=== PATIENT | male | born 1960 | race American Indian/Alaskan Native ===

== ENCOUNTER 2017-01-22 | Emergency (ER) | payer OTHER ==
--- NOTE | 2017-01-22 01:39 | XRay Report ---
FINAL REPORT EXAM: XR SPINE LUMBOSACRAL 2-3V HISTORY: BACK PAIN TECHNIQUE: Three views lumbar spine were obtained. FINDINGS: There is moderate narrowing of the L2-L3 disc with endplate spurring. The remaining disc heights appear normal. The alignment is normal. The SI joints appear normal. The soft tissues reveal calcification of the abdominal aorta. IMPRESSION: Moderate narrowing of the L2-3 disc with spurring. No acute injury.
[2017-01-22] MEDS ORDERED: MOTRIN ONE (02:53)
[2017-01-22] MEDS ORDERED: MOTRIN PO ONE (02:54)
[2017-01-22] MEDS ORDERED: MORPHINE IM ONE (08:00)
--- NOTE | 2017-01-22 08:08 | Emergency Department Report ---
ED Back Pain/Injury HPI - General Chief Complaint: Back Pain/Injury Stated Complaint: LEG,BACK PAIN Time Seen by Provider: 01/22/17 07:36 Source: patient Limitations: No Limitations - History of Present Illness Initial Comments: 56-year-old male presents with complaints of pain in his low back since 1 week ago. Pain radiates down his his left thigh. Patient recalls bending down to some work a week ago prior to onset of pain. No fecal or urinary incontinence. Pt was problems with his gait as a result of his pain Pt was seen by his PCP and commenced on Flexeril and Diclofenac. Pt claims he is not getting any relief o fhis symptoms Complaint: back pain -: Gradual, week(s) (1) Similar Symptoms Previously: Yes (chronic low back pain) Place: home Radiation: left leg (left thigh goes into spasms) Severity: moderate Severity scale (0 -10): 5 Quality: sharp, aching Consistency: intermittent Improves With: immobilization Worsens With: movement, walking Context: bending (doing some work) Associated Symptoms: weakness (left leg), difficulty walking. denies: cough, difficulty urinating, diaphoresis, incontinence, fever/chills, constipation, headaches, abdominal pain, malaise, nausea/vomiting, rash, seizure, shortness of breath - Related Data Home Medications Medication Instructions Recorded Confirmed Last Taken Diclofenac Sodium ER 75 mg PO Q12H 01/22/17 01/22/17 Unknown Flexeril 10 MG TAB 1 tab PO HS PRN 01/22/17 01/22/17 Unknown Previous Rx's Medication Instructions Recorded Last Taken Type Methocarbamol [Robaxin TAB] 1,500 mg PO TID #30 tablet 01/22/17 Unknown Rx traMADol [Ultram] 50 mg PO Q6HR PRN #20 tablet 01/22/17 Unknown Rx Allergies Allergy/AdvReac Type Severity Reaction Status Date / Time No Known Allergies Allergy Verified 01/22/17 02:53 ED Review of Systems ROS: Stated complaint: LEG,BACK PAIN Other details as noted in HPI Comment: All other systems reviewed and negative Constitutional: denies: see HPI, diaphoresis, fever, malaise Eyes: denies: eye pain, eye discharge, vision change ENT: denies: throat pain, dental pain, hearing loss, epistaxis Respiratory: denies: cough, orthopnea, shortness of breath, SOB with exertion, SOB at rest Cardiovascular: denies: chest pain, palpitations, dyspnea on exertion, edema, syncope, paroxysmal nocturnal dyspnea Endocrine: no symptoms reported Gastrointestinal: denies: nausea, diarrhea, constipation, hematemesis Genitourinary: denies: urgency, dysuria, frequency, hematuria Musculoskeletal: as per HPI, back pain, other (radiated pain down his left leg with spasms of his left thigh) Skin: denies: change in color, change in hair/nails, pruritus Neurological: numbness (in his left leg), abnormal gait (due to pain in left leg ). denies: headache, weakness Psychiatric: denies: anxiety, depression, auditory hallucinations, visual hallucinations, homicidal thoughts ED Past Medical Hx - Past Medical History Previous Medical History?: No - Surgical History Past Surgical History?: No - Social History Smoking Status: Current Some Day Smoker Substance Use Type: None - Medications Home Medications: Home Medications Medication Instructions Recorded Confirmed Last Taken Type Diclofenac Sodium ER 75 mg PO Q12H 01/22/17 01/22/17 Unknown History Flexeril 10 MG TAB 1 tab PO HS PRN 01/22/17 01/22/17 Unknown History Methocarbamol [Robaxin TAB] 1,500 mg PO TID #30 tablet 01/22/17 Unknown Rx traMADol [Ultram] 50 mg PO Q6HR PRN #20 tablet 01/22/17 Unknown Rx ED Physical Exam - General Limitations: No Limitations General appearance: alert, in distress (mild to moderate distress) - Head Head exam: Present: atraumatic, normocephalic, normal inspection - Eye Eye exam: Present: normal appearance, PERRL, EOMI. Absent: scleral icterus, conjunctival injection, nystagmus, periorbital swelling Pupils: Present: normal accommodation - ENT ENT exam: Present: normal exam, normal orophraynx, mucous membranes moist - Neck Neck exam: Present: normal inspection, full ROM. Absent: tenderness - Respiratory Respiratory exam: Present: normal lung sounds bilaterally. Absent: respiratory distress, wheezes, rales, chest wall tenderness - Cardiovascular Cardiovascular Exam: Present: regular rate, normal rhythm, normal heart sounds - GI/Abdominal GI/Abdominal exam: Present: soft, normal bowel sounds. Absent: distended, tenderness, guarding, hyperactive bowel sounds, hypoactive bowel sounds, organomegaly, mass - Rectal Rectal exam: Present: deferred - exam: Present: normal inspection. Absent: testicular tenderness, scrotal swelling, vertical testicular lie - Expanded Lower Extremity Exam Left Hip exam: Present: full ROM. Absent: tenderness, laceration Upper Leg exam: Present: normal inspection, tenderness (left thigh, with limited range of motion). Absent: abrasion, laceration Knee exam: Present: normal inspection, full ROM. Absent: tenderness, swelling, abrasion, dislocation, erythema Lower Leg exam: Present: normal inspection, full ROM. Absent: tenderness, swelling, laceration, ecchymosis, deformity Ankle exam: Present: normal inspection, full ROM. Absent: abrasion, laceration Foot/Toe exam: Present: normal inspection, full ROM. Absent: tenderness, swelling, dislocation, erythema, amputation Neuro vascular tendon exam: Present: no vascular compromise Gait: Positive: observed and limited by pain - Back Exam Back exam: Present: normal inspection, full ROM. Absent: tenderness, CVA tenderness (R), CVA tenderness (L), muscle spasm, paraspinal tenderness - Neurological Exam Neurological exam: Present: alert, oriented X3, CN II-XII intact, abnormal gait ED Course Vital Signs 01/22/17 01/22/17 00:10 00:28 Temperature 97.6 F 97.6 F Pulse Rate 85 85 Respiratory 18 18 Rate Blood Pressure 141/87 Blood Pressure 141/87 [Left] O2 Sat by Pulse 98 98 Oximetry Critical Care Time: No Critical care attestation.: If time is entered above; I have spent that time in minutes in the direct care of this critically ill patient, excluding procedure time. ED Disposition Clinical Impression: Lumbar radiculopathy, acute, Pain of left thigh Disposition: DC- TO HOME OR SELFCARE Is pt being admited?: No Does the pt Need Aspirin: No Condition: Stable Additional Instructions: If the problem persists.follow up with your primary care physician and seek referred to a spinal surgeon for possible MRI or lumbar spine Prescriptions: Methocarbamol [Robaxin TAB] 1,500 mg PO TID #30 tablet traMADol [Ultram] 50 mg PO Q6HR PRN #20 tablet PRN Reason: Pain Referrals: PRIMARY CARE, [Primary Care Provider] - 3-5 Days Time of Disposition: 08:21
[2017-01-22 08:18] LABS: Bilirubin,Urine NEG (Negative); Blood,Urine NEG (Negative); Ketones,Urine NEG (Negative); Leukocyte Esterase,Urine NEG (Negative); Mucus,Urine FEW /HPF; Nitrite,Urine NEG (Negative); Protein,Urine <15 mg/dL mg/dL (Negative); Urobilinogen,Urine < 2.0 mg/dL (<2.0)
[2017-01-22] MEDS ORDERED: ZOFRAN ODT ONE (08:23)
[2017-01-22] MEDS: ZOFRAN PO ONE ×2 (08:24→08:38)
[2017-01-22] MEDS ORDERED: ROBAXIN PO ONE (08:30)
[2017-01-22 08:32] VITALS: BP 150/92
== END 2017-01-22 08:47 | disposition home or self-care (01) ==
LOC: ED
DX: M54.16 Radiculopathy, lumbar region (principal); M79.652 Pain in left thigh; F17.200 Nicotine dependence, unspecified, uncomplicated
CPT/HCPCS: 72100; 81001; 96372; 99284; J2270; Q0162